=== PATIENT | female | born 1980 | race African-American/Black ===

== ENCOUNTER 2019-05-27 12:15 | Outpatient (CLI) | payer OTHER ==
--- NOTE | 2019-05-27 12:53 | RAD ---
3 views of the left hip: 05/27/2019 COMPARISON: None HISTORY: Disability evaluation FINDINGS: Detailed assessment is markedly limited secondary to body habitus. No obvious fracture is n oted. IMPRESSION: Markedly limited examination demonstrating no obvious displaced fracture.
--- NOTE | 2019-05-27 12:53 | RAD ---
TWO VIEWS OF THE CHEST: COMPARISON: None. HISTORY: Disability evaluation. Chest pain. FINDINGS: Two views of the chest show normal sized cardiomediastinal silhouette. There is no evidence of consol idation, mass, or pleural effusion. The bones are unremarkable. IMPRESSION: No evidence of acute cardiopulmonary disease. POS: [facility]
== END 2019-05-27 12:16 | disposition home or self-care (01) ==
LOC: NAV RAD 12:15
PROVIDERS: ATTEND Family Medicine
DX: Z02.71 Encounter for disability determination (principal); Z86.79 Personal history of other diseases of the circulatory system
CPT/HCPCS: 71046